=== PATIENT | male | born 1955 | race African-American/Black ===

== ENCOUNTER 2023-12-31 07:27 | Day surgery (SDC) | payer MEDICARE ==
[2023-12-26 11:59] VITALS: BMI 30.8
[2023-12-31] MEDS ORDERED: CEFAZOLIN 2 GM VIAL ONE (08:28)
[2023-12-31] MEDS ORDERED: Lidocaine 1% (PF) 30 ML VIAL ONE (08:28)
[2023-12-31 08:33] LABS: Hematocrit 53.1 % (38.8-50.0)
[2023-12-31 08:47] LABS: Anion Gap 15 mmol/L (10-20); BUN (Urea Nitrogen) 14 mg/dL (8.4-25.7); Calc. Creatinine Clearance 73 mL/min (70-130); Calcium 10.8 mg/dL (7.8-10.44); Carbon Dioxide 27 mmol/L (23-31); Chloride 104 mmol/L (98-107); Estimated GFR 49; Glucose 115 mg/dL (80-115); Potassium 3.8 mmol/L (3.5-5.1); Sodium 142 mmol/L (136-145)
[2023-12-31] MEDS ORDERED: Dexamethasone 20 MG/5 ML VIAL ONE (10:04)
[2023-12-31] MEDS ORDERED: Rocuronium Bromide 10 MG/ML (10ML VIAL) ONE (10:04)
[2023-12-31] MEDS ORDERED: PROPOFOL 20 ML ONE (10:04)
[2023-12-31] MEDS ORDERED: fentaNYL 50 mcg/mL 1 mL Vial ONE ×2 (10:04→11:30)
[2023-12-31] MEDS ORDERED: Lidocaine 1% PF 5 ML VIAL ONE (10:04)
[2023-12-31] MEDS ORDERED: Ondansetron PF 4 MG/2 ML Vial ONE (10:04)
[2023-12-31] MEDS ORDERED: PHENYLEPHRINE-NS 100 MCG/ML 10 ML SYRINGE ONE (10:51)
[2023-12-31] MEDS ORDERED: EPINEPHrine 1 MG/ML AMP ONE (10:55)
[2023-12-31] MEDS ORDERED: HYDROcodone/Acetaminophen 5/325 mg Tablet ONE (12:33)
== END 2023-12-31 13:07 | disposition home or self-care (01) ==
LOC: CSHSDC 07:27
PROVIDERS: ATTEND Otolaryngology Otolaryngic Allergy
PROC: 0GTM0ZZ Resection of Left Superior Parathyroid Gland, Open Approach (ICD-10-PCS; principal; 2023-12-31)
DX: D35.1 Benign neoplasm of parathyroid gland (principal); E21.3 Hyperparathyroidism, unspecified; E04.1 Nontoxic single thyroid nodule; I10 Essential (primary) hypertension; H26.9 Unspecified cataract; E78.5 Hyperlipidemia, unspecified; E66.9 Obesity, unspecified; Z68.30 Body mass index [BMI] 30.0-30.9, adult; Z79.899 Other long term (current) drug therapy
CPT/HCPCS: 60500; 80048; 83970; 85014; 85018; 93005; J1100; J2001; J2405; J2704; J3010; 36415; 88305; 88331; 93010; J0171